=== PATIENT | female | born 1940 | race Caucasian/White ===

== ENCOUNTER → 2017-12-30 | Day surgery (SDC) | payer OTHER ==
[~2017-12-30] MED LIST: 1-ME1LIQ PO; BUPIVACAINE HCL PF 0.5% 30 ML VIAL ONE; HYDR-3533 PO; ISOSULFAN BLUE 50 MG/5 ML VIAL SQ ONE; KETOROLAC TROMETHAMINE 30 MG/ML (IVP) VIAL ONE; LACTATED RINGER'S 1000 ML INJ 1,000 ML ONE; MIDAZOLAM HCL 2 MG/2 ML VIAL ONE; MORPHINE SULFATE 4 MG/ML INJ ONE; ONDANSETRON HCL 4 MG/2 ML VIAL IV PUSH ONE; PROPOFOL 100 MG/10 ML INJ IV ONE; SIMV40TA PO; SODIUM CHLORIDE 0.9% INJ 10 ML ONE; ceFAZolin 2 GM PREMIX 50 ML ONE; oxyCODONE/ACETAMINOPHEN 5 MG/325 MG TAB ONE
--- NOTE | 2017-12-30 14:20 | MP ---
cc: Helen Bustos MD DATE OF OPERATION: 12/30/2017 PRINCIPAL DIAGNOSIS: Stage I left breast cancer. POSTOPERATIVE DIAGNOSIS: Stage I left breast cancer. PROCEDURE PERFORMED: Left breast needle localized lumpectomy and left axillary sentinel lymph node biopsy, attempted intraoperative radiation therapy. SURGEON: Helen Bustos MD ANESTHESIA: General via LMA device. HISTORY OF PRESENT ILLNESS: The patient is a 77-year-old female with a newly diagnosed clinical stage I left breast cancer. She has opted for breast conservation and desires intraoperative radiation therapy. She now presents for the procedure. FINDINGS AT TIME OF SURGERY: Specimen mammogram did demonstrate an intact wire, and the biopsy clip and lesion were within the specimen. Four sentinel lymph nodes were identified. Number 1 had a count of 806, number 2 had a count of 150, number 3 was suspicious and had a count of 31, and number 4 was suspicious and had a count of 29. Touch prep was not performed. PROCEDURE PERFORMED: After informed consent was obtained and site verification was performed, the patient was brought to the radiology suite where she underwent needle localization of her prior biopsy site as well as peritumoral radionucleide injection. She was given a single dose of IV Ancef, and sequential compression hose were placed. She was then brought to the major operating room where she underwent general anesthesia via an LMA device. Three mL of half strength Lymphazurin were injected in the subareolar left breast, and a 5 minute massage was performed. A radial incision at 6 o'clock to include an ellipse of skin was then anesthetized with 0.5% Marcaine plain and incised sharply. The wire entry point through the skin was identified and secured with a hemostat. The wire was cut off at the skin with pin cutters, and a 2-0 silk transfixion suture was placed at the wire entry point into the breast tissue. Sharp and electrocautery dissection was performed circumferentially around the wire, and the initial specimen was oriented with the skin anterior, 2 sutures laterally, and 1 short suture superiorly. Inspection of this specimen did demonstrate an intact wire, but there was a palpable mass just medial to the area. A second specimen was then obtained to include an overlying ellipse of skin at the medial aspect of the prior lumpectomy using sharp and electrocautery dissection. This specimen was oriented with the skin anterior, 1 short suture superiorly, and 1 long suture marked the new medial margin. This specimen was called the medial margin of the lumpectomy. Specimen imaging did demonstrate an intact wire, and the clip and lesion were present. Good hemostasis was noted, and a 0 Prolene pursestring suture was placed in the subcutaneous tissue. A 4 cm applicator was noted to fit into the cavity with skin to applicator distance greater than 1 cm in all directions using ultrasound guidance. The applicator was placed in the sterile drape and secured to the machine and it was then placed into the cavity, and the pursestring suture was secured. Initially the machine passed all quality control operator testing, but despite multiple attempts and troubleshooting, treatment could not commence because of an error in the machine itself. The applicator was removed from the cavity, and the device was removed from the field. Good hemostasis was noted, and the left breast lumpectomy cavity was closed using interrupted 3-0 Vicryl subcutaneous sutures and a 4-0 Monocryl subcuticular suture. Attention was then turned to the left axilla where an incision was anesthetized at the inferior aspect of the left axillary hairline. Sharp and electrocautery dissection were performed until the clavipectoral fascia was divided and a level 1 axilla was entered. There were 2 enlarged lateral level 1 lymph nodes, and each of these was circumferentially dissected free from surrounding structures using the Harmonic scalpel. These nodes had the count of 31 and 29. More inferiorly, near the axillary tail of Brenner, there was a smaller lymph node, which was circumferentially dissected free from surrounding structures, and this node and an adjacent node had the count of 806 and 150. Good hemostasis was noted in the axilla, and there was no palpable adenopathy or residual radioactivity. The wound was closed using interrupted 3-0 Vicryl subcutaneous sutures and a 4-0 Monocryl subcuticular suture. Steri-Strips and sterile dressings were applied to both wounds. The patient tolerated the procedure well with an estimated blood loss of less than 50 mL. She was extubated in the operating room and brought to recovery room in good condition. MD MATEUSZ Moore/CARLOS , 01:46 PM , 02:19 PM
== END | disposition home or self-care (01) ==
LOC: ESDC 07:27
PROVIDERS: ATTEND Surgery
DX: C50.912 Malignant neoplasm of unspecified site of left female breast (principal)
CPT/HCPCS: 00400; 01610; 19294; 19301; 38525; 38792; 88305; 88307; J0690; J1885; J2250; J2270; J2405; J3010; J7120; Q9968